=== PATIENT | male | born 1960 | race Caucasian/White ===

== ENCOUNTER 2023-06-04 09:41 | Inpatient (IN) ==
[2023-06-04] MEDS ORDERED: Etomidate 40 mg/20 ml (2 MG/ML) 20 ml VIAL (40 mg) ONE ×2 (09:56)
[2023-06-04] MEDS ORDERED: Rocuronium 50 mg VIAL 10 mg/ml 5 ml VIAL (50 mg) ONE ×2 (09:56)
[2023-06-04] MEDS ORDERED: NS 0.9% 1000 ml BAG 1,000 ML IV ONE (10:03)
[2023-06-04 10:29] LABS: ABS Lymphocytes 0.9 10^3/uL (1.0-4.8); ABS Monocytes 0.4 10^3/uL (0.0-1.1); ABS Neutrophils 6.9 10^3/uL (1.5-7.6); Hematocrit 35.2 % (38-53); Lymphocyte % 10.9 %; Mean Corpuscular Hemoglobin 34.1 pg (27-33); Mean Corpuscular Volume 100.3 fL (80-97); Mean Platelet Volume 9.4 fL (7.5-11.2); Platelet Count 128 10^3/uL (150-450); Red Blood Count 3.51 10^6/uL (4.06-5.63); Red Cell Distribution Width 12.9 % (12-17); White Blood Count 8.2 10^3/uL (3.6-10.2)
[2023-06-04 10:30] LABS: Eosinophil % 0.2 %
[2023-06-04] MEDS ORDERED: levETIRAcetam 1000MG IVPREMIX 1,000 MG/100 ML BAG IVPB ONE (10:31)
[2023-06-04] MEDS: Propofol 10 mg/ml 100 ML BTL 1,000 MG/100 ML BTL IV SCH ×2 (10:55→17:27)
[2023-06-04 11:15] LABS: Albumin 4.1 g/dL (3.2-5.2); Albumin/Globulin Ratio 1.8 (1-3); C Reactive Protein 7.83 mg/L (<8.01); Creatinine, Serum 1.26 mg/dL (0.67-1.17); Globulin 2.3 g/dL (2-4); Potassium 3.9 mmol/L (3.5-5.0); Total Bilirubin 0.6 mg/dL (0.2-1.0); Total Protein 6.4 g/dL (6.4-8.9); eGFR CKD-EPI 64.5 (>60)
[2023-06-04 12:04] LABS: Calcium 8.8 mg/dL (8.6-10.3)
[2023-06-04 12:14] LABS: Resp Rate 16
[2023-06-04 12:17] LABS: PCO2 Arterial 41 mmHg (35-45); PO2 Arterial 64 mmHg (80-100)
[2023-06-04 12:27] LABS: Urine Appearance Clear; Urine Bilirubin Negative (Negative); Urine Blood 1+ (Negative); Urine Color Colorless; Urine Glucose Negative (Negative); Urine Ketones Negative (Negative); Urine Nitrite Negative (Negative); Urine Protein Negative (Negative); Urine Specific Gravity 1.005 (1.002-1.030); Urine Urobilinogen Negative (Negative)
[2023-06-04 13:12] LABS: Urine Bacteria 1+ (Absent); Urine Red Blood Cell Trace(0-2/hpf) (Absent); Urine White Blood Cell Absent (Absent)
[2023-06-04 13:25] LABS: TSH Ultra Thyroid Stim Horm 4.06 mcIU/mL (0.34-5.60)
[2023-06-04 13:29] LABS: Acetaminophen < 15 mcg/mL; Alcohol, S < 13 mg/dL (<13); Salicylate < 2.50 mg/dL (<30)
[2023-06-04 13:57] LABS: INR 1.05 (0.83-1.13)
[2023-06-04 14:26] LABS: Urine Benzodiazepine Screen Presumptive Positive (None Detect); Urine Cannabinoids Screen None Detected (None Detect); Urine Opiates Screen None Detected (None Detect)
[2023-06-04 14:49] LABS: Anion Gap 11 mmol/L (2-16); Blood Urea Nitrogen 12 mg/dL (6-24); CO2 Carbon Dioxide 17 mmol/L (22-32); Calcium 7.1 mg/dL (8.6-10.3); Chloride 111 mmol/L (101-111); Glucose 86 mg/dL (70-100); High Sens Troponin Baseline 9 pg/mL (<20); Sodium 139 mmol/L (135-145); eGFR CKD-EPI 96.6 (>60)
[2023-06-04] MEDS: Enoxaparin 40 MG/0.4 ML SYR SUBCUT SCH (14:52)
[2023-06-04] MEDS: Chlorhexidine MOUTHWASH 0.12% 15 ML UDC SWISH SPIT SCH ×3 (14:52→21:30)
[2023-06-04] MEDS: Pantoprazole VIAL 40 MG VIAL IV SCH (14:52)
[2023-06-04] MEDS ORDERED: levETIRAcetam 500 MG IVPREMIX 500 MG/100 ML BAG IV SCH (16:00)
[2023-06-04] MEDS: levETIRAcetam 500 MG IVPREMIX 500 MG/100 ML BAG IV SCH (16:20)
[2023-06-04 16:41] LABS: Calcium 8.8 mg/dL (8.6-10.3); Magnesium 2.2 mg/dL (1.9-2.7); Potassium 3.6 mmol/L (3.5-5.0)
[2023-06-04 16:47] LABS: Creatinine, Serum 1.05 mg/dL (0.67-1.17); eGFR CKD-EPI 80.3 (>60)
[2023-06-04] MEDS ORDERED: Acetaminophen IV 1 GM/100ML 1,000 MG/100 ML BAG IV PRN ×2 (18:00→19:36)
[2023-06-04 18:06] LABS: Magnesium 2.2 mg/dL (1.9-2.7); Potassium Redraw 3.7 mmol/L (3.5-5.0)
[2023-06-04] MEDS ORDERED: NORMOSOL R PH IV ONE (19:39)
[2023-06-04] MEDS ORDERED: Vancomycin 1,000 MG in NS 0.9% 250 ml 250 ML IVPB ONE (19:41)
[2023-06-04] MEDS ORDERED: Lactated Ringers 1000 ml BAG 1,000 ML IV SCH (20:00)
[2023-06-04] MEDS ORDERED: Vancomycin per Pharmacy 1 EA NOTE FOLLOW UP SCH (20:00)
[2023-06-04] MEDS ORDERED: LORazepam 2 mg VIAL 1 ml IV PUSH ONE (20:47)
[2023-06-04] MEDS ORDERED: Lorazepam PYXIS KEY PRN (20:47)
[2023-06-04 20:52] LABS: ABS Lymphocytes 0.7 10^3/uL (1.0-4.8); ABS Monocytes 0.9 10^3/uL (0.0-1.1); ABS Neutrophils 5.1 10^3/uL (1.5-7.6); Hemoglobin 12.1 g/dL (13.2-16.3); Lymphocyte % 9.7 %; Mean Corpuscular Hemoglobin 34.5 pg (27-33); Mean Corpuscular Hgb Conc 35.4 g/dL (31-36); Mean Corpuscular Volume 97.3 fL (80-97); Mean Platelet Volume 10.1 fL (7.5-11.2); Platelet Count 136 10^3/uL (150-450); Red Cell Distribution Width 13.6 % (12-17); White Blood Count 6.7 10^3/uL (3.6-10.2)
[2023-06-04] MEDS: Dexamethasone IV 4 MG/ML VIAL 1 ml VIAL IV SLOW PU SCH (21:31)
[2023-06-04] MEDS: Ampicillin ADVAN 2 GM in NS 0.9% 100 ml BAG 100 ML IVPB SCH (21:31)
[2023-06-04] MEDS: cefTRIAXone 2 gm/50 mL D5W 2 GM/50 ML BAG IV SCH (21:31)
[2023-06-04] MEDS: Norepinephrine 16MCG/ML BAGD5W 4,000 MCG/250 ML BAG IV SCH ×2 (21:32→21:57)
[2023-06-04] MEDS ORDERED: Midazolam 5 mg/5 ml VIAL 1 mg/ml 5 ml VIAL (5 mg) IV SLOW PU ONE (21:52)
[2023-06-04] MEDS ORDERED: Midazolam 5 mg/5 ml VIAL 1 mg/ml 5 ml VIAL (5 mg) ONE (21:54)
[2023-06-04] MEDS ORDERED: Atropine 0.1 MG/ML 10 ml SYR (1 mg) ONE (22:26)
[2023-06-04] MEDS ORDERED: fentaNYL 100 mcg/2 ml 50 MCG/ML VIAL ONE (22:41)
[2023-06-04 22:47] LABS: Prolactin 44.5 ng/mL (1.0-20.0)
[2023-06-05] MEDS: Chlorhexidine MOUTHWASH 0.12% 15 ML UDC SWISH SPIT SCH ×6 (00:25→20:32)
[2023-06-05 00:50] LABS: PCO2 Arterial 39 mmHg (35-45); PO2 Arterial 157 mmHg (80-100)
[2023-06-05 00:53] LABS: Body Fluid Source Cerebral Spinal
[2023-06-05 00:55] LABS: Osmolality Serum 287 mOsm/kg (275-295)
[2023-06-05 00:57] LABS: Calcium 8.3 mg/dL (8.6-10.3); Magnesium 2.3 mg/dL (1.9-2.7); Potassium 3.8 mmol/L (3.5-5.0)
[2023-06-05 00:59] LABS: Urine Osmo 308 mOsm/kg (150-1150)
[2023-06-05 01:02] LABS: Creatinine, Serum 0.85 mg/dL (0.67-1.17); eGFR CKD-EPI 98.2 (>60)
[2023-06-05 01:08] LABS: CSF Glucose 67 mg/dL (40-70)
[2023-06-05] MEDS: Propofol 10 mg/ml 100 ML BTL 1,000 MG/100 ML BTL IV SCH ×3 (01:35→18:30)
[2023-06-05] MEDS ORDERED: Atropine 0.1 MG/ML 10 ml SYR (1 mg) IV PUSH ONE (02:30)
[2023-06-05] MEDS ORDERED: fentaNYL 100 mcg/2 ml 50 MCG/ML VIAL IV SLOW PU ONE (02:30)
[2023-06-05] MEDS: Dexamethasone IV 4 MG/ML VIAL 1 ml VIAL IV SLOW PU SCH ×2 (02:51→08:54)
[2023-06-05] MEDS: Ampicillin ADVAN 2 GM in NS 0.9% 100 ml BAG 100 ML IVPB SCH ×6 (02:52→21:38)
[2023-06-05 02:53] LABS: Body Fluid Appearance Clear; Body Fluid Color Colorless; CSF Tube # 4
[2023-06-05] MEDS ORDERED: Norepinephrine 16MCG/ML BAGD5W 4,000 MCG/250 ML BAG IV SCH (02:54)
[2023-06-05] MEDS ORDERED: Atropine 0.1 MG/ML 10 ml SYR (1 mg) IV PUSH PRN (02:55)
[2023-06-05 03:03] LABS: Body Fluid WBC 0 /mcL
[2023-06-05] MEDS: levETIRAcetam 500 MG IVPREMIX 500 MG/100 ML BAG IV SCH ×2 (04:19→17:28)
[2023-06-05 04:26] LABS: Body Fluid Total Cells Counted 0
[2023-06-05 05:18] LABS: ABS Lymphocytes 0.3 10^3/uL (1.0-4.8); ABS Monocytes 0.1 10^3/uL (0.0-1.1); ABS Neutrophils 6.4 10^3/uL (1.5-7.6); Hematocrit 33.4 % (38-53); Hemoglobin 11.9 g/dL (13.2-16.3); Lymphocyte % 4.8 %; Mean Corpuscular Hemoglobin 34.5 pg (27-33); Mean Corpuscular Hgb Conc 35.6 g/dL (31-36); Mean Corpuscular Volume 96.9 fL (80-97); Mean Platelet Volume 9.2 fL (7.5-11.2); Platelet Count 115 10^3/uL (150-450); Red Blood Count 3.45 10^6/uL (4.06-5.63); Red Cell Distribution Width 13.4 % (12-17); White Blood Count 6.8 10^3/uL (3.6-10.2)
[2023-06-05 05:38] LABS: Calcium 8.5 mg/dL (8.6-10.3); Creatinine, Serum 0.83 mg/dL (0.67-1.17); Magnesium 2.2 mg/dL (1.9-2.7)
[2023-06-05] MEDS: cefTRIAXone 2 gm/50 mL D5W 2 GM/50 ML BAG IV SCH ×2 (09:46→20:32)
[2023-06-05] MEDS: Vancomycin 750 MG in NS 0.9% 250 ML IVPB SCH ×2 (11:30→22:38)
[2023-06-05] MEDS: Enoxaparin 40 MG/0.4 ML SYR SUBCUT SCH (11:36)
[2023-06-05] MEDS: Pantoprazole VIAL 40 MG VIAL IV SCH (11:37)
[2023-06-05] MEDS ORDERED: Rocuronium 50 mg VIAL 10 mg/ml 5 ml VIAL (50 mg) IV ONE (11:56)
[2023-06-05] MEDS ORDERED: Rocuronium 50 mg VIAL 10 mg/ml 5 ml VIAL (50 mg) ONE (11:57)
[2023-06-05] MEDS ORDERED: Midazolam 2 mg/2 ml VIAL 1 mg/ml 2 ml VIAL (2 mg) IV SLOW PU PRN (12:03)
[2023-06-05] MEDS: Midazolam 10 mg/10 ml VIAL 1 mg/ml 10 ml VIAL (10 mg) ONE ×2 (13:25→15:24)
[2023-06-05] MEDS ORDERED: Midazolam 10 mg/10 ml VIAL 1 mg/ml 10 ml VIAL (10 mg) IV SLOW PU PRN (15:01)
[2023-06-05 17:20] LABS: Calcium 8.9 mg/dL (8.6-10.3); Creatinine, Serum 0.91 mg/dL (0.67-1.17); Magnesium 2.1 mg/dL (1.9-2.7); Phosphorus 4.4 mg/dL (2.5-5.0); Potassium 4.2 mmol/L (3.5-5.0); eGFR CKD-EPI 95.3 (>60)
[2023-06-05 18:06] LABS: Folate > 20.00 ng/mL (5.90-24.80)
[2023-06-05 18:07] LABS: Vitamin B12 291 pg/mL (180-914)
[2023-06-06] MEDS: Chlorhexidine MOUTHWASH 0.12% 15 ML UDC SWISH SPIT SCH ×5 (00:11→18:12)
[2023-06-06] MEDS: Ampicillin ADVAN 2 GM in NS 0.9% 100 ml BAG 100 ML IVPB SCH ×3 (01:11→16:02)
[2023-06-06] MEDS: levETIRAcetam 500 MG IVPREMIX 500 MG/100 ML BAG IV SCH ×2 (03:42→17:23)
[2023-06-06] MEDS: Propofol 10 mg/ml 100 ML BTL 1,000 MG/100 ML BTL IV SCH (03:42)
[2023-06-06 04:07] LABS: ABS Lymphocytes 0.4 10^3/uL (1.0-4.8); ABS Monocytes 0.8 10^3/uL (0.0-1.1); ABS Neutrophils 7.9 10^3/uL (1.5-7.6); ABS Nucleated RBC 0.01 10^3/ul; Hematocrit 27.8 % (38-53); Lymphocyte % 4.9 %; Mean Corpuscular Volume 97.2 fL (80-97); Mean Platelet Volume 9.8 fL (7.5-11.2); Nucleated Red Blood Cells % 0.1 /100 WBC (0.0-0.4); Platelet Count 93 10^3/uL (150-450); Red Blood Count 2.86 10^6/uL (4.06-5.63); Red Cell Distribution Width 13.5 % (12-17); White Blood Count 9.2 10^3/uL (3.6-10.2)
[2023-06-06 04:23] LABS: Albumin 3.3 g/dL (3.2-5.2); Albumin/Globulin Ratio 1.7 (1-3); Calcium 8.2 mg/dL (8.6-10.3); Creatinine, Serum 0.9 mg/dL (0.67-1.17); Magnesium 1.9 mg/dL (1.9-2.7); Phosphorus 3.7 mg/dL (2.5-5.0); Potassium 3.9 mmol/L (3.5-5.0); Total Bilirubin 0.3 mg/dL (0.2-1.0); Total Protein 5.3 g/dL (6.4-8.9); eGFR CKD-EPI 96.6 (>60)
[2023-06-06] MEDS ORDERED: KCL 10 MEQ/50 ML IVPREMIX 10 MEQ/50 ML BAG IV ONE (07:12)
[2023-06-06] MEDS ORDERED: Magnesium Sulfate IV 1GM/100ML 1 GM/100 ML BAG IV ONE (07:12)
[2023-06-06] MEDS ORDERED: Cyanocobalamin INJ 1,000 MCG/ML VIAL 1 ML VIAL IM ONE (07:12)
[2023-06-06] MEDS: cefTRIAXone 2 gm/50 mL D5W 2 GM/50 ML BAG IV SCH (09:07)
[2023-06-06] MEDS ORDERED: Vancomycin Trough Check NOTE FOLLOW UP ONE (10:30)
[2023-06-06] MEDS: Enoxaparin 40 MG/0.4 ML SYR SUBCUT SCH (15:41)
[2023-06-06] MEDS: Pantoprazole VIAL 40 MG VIAL IV SCH (15:41)
[2023-06-06] MEDS ORDERED: Lorazepam PYXIS KEY PRN (20:19)
[2023-06-06] MEDS ORDERED: LORazepam 2 mg VIAL 1 ml IV PUSH PRN (20:19)
[2023-06-06] MEDS ORDERED: LORazepam 2 mg VIAL 1 ml ONE (20:26)
[2023-06-06] MEDS ORDERED: Haloperidol 5 mg/ml SDV IV/IM 5 MG/ML AMP IV SLOW PU PRN (21:40)
[2023-06-07] MEDS: levETIRAcetam 500 MG IVPREMIX 500 MG/100 ML BAG IV SCH (03:34)
[2023-06-07 04:35] LABS: ABS Lymphocytes 0.9 10^3/uL (1.0-4.8); ABS Monocytes 0.6 10^3/uL (0.0-1.1); ABS Neutrophils 4.1 10^3/uL (1.5-7.6); ABS Nucleated RBC 0.01 10^3/ul; Eosinophil % 0.1 %; Hematocrit 30.2 % (38-53); Hemoglobin 10.8 g/dL (13.2-16.3); Lymphocyte % 16.4 %; Mean Corpuscular Hemoglobin 34.8 pg (27-33); Mean Corpuscular Hgb Conc 35.7 g/dL (31-36); Mean Corpuscular Volume 97.3 fL (80-97); Mean Platelet Volume 9.6 fL (7.5-11.2); Nucleated Red Blood Cells % 0.2 %/100WBC (0.0-0.8); Platelet Count 98 10^3/uL (150-450); Red Cell Distribution Width 13.3 % (12-17); White Blood Count 5.6 10^3/uL (3.6-10.2)
[2023-06-07 04:56] LABS: Albumin 3.6 g/dL (3.2-5.2); Albumin/Globulin Ratio 1.6 (1-3); Calcium 8.6 mg/dL (8.6-10.3); Creatinine, Serum 0.83 mg/dL (0.67-1.17); Globulin 2.2 g/dL (2-4); Magnesium 1.9 mg/dL (1.9-2.7); Potassium 3.4 mmol/L (3.5-5.0); Total Bilirubin 0.5 mg/dL (0.2-1.0); Total Protein 5.8 g/dL (6.4-8.9)
[2023-06-07] MEDS ORDERED: Potassium Chloride LIQUID 20 MEQ/15 ML LIQUID PO ONE (08:30)
[2023-06-07] MEDS: Enoxaparin 40 MG/0.4 ML SYR SUBCUT SCH ×2 (13:02→14:18)
[2023-06-08 06:11] LABS: ABS Lymphocytes 0.7 10^3/uL (1.0-4.8); ABS Monocytes 0.7 10^3/uL (0.0-1.1); ABS Neutrophils 3.2 10^3/uL (1.5-7.6); ABS Nucleated RBC 0.01 10^3/ul; Eosinophil % 0.2 %; Hemoglobin 11.6 g/dL (13.2-16.3); Lymphocyte % 15.8 %; Mean Corpuscular Hemoglobin 34.1 pg (27-33); Mean Corpuscular Hgb Conc 35.2 g/dL (31-36); Mean Corpuscular Volume 97.1 fL (80-97); Mean Platelet Volume 9.2 fL (7.5-11.2); Nucleated Red Blood Cells % 0.2 %/100WBC (0.0-0.8); Platelet Count 108 10^3/uL (150-450); Red Cell Distribution Width 13.2 % (12-17); White Blood Count 4.7 10^3/uL (3.6-10.2)
[2023-06-08 06:43] LABS: Albumin 3.8 g/dL (3.2-5.2); Albumin/Globulin Ratio 1.7 (1-3); Creatinine, Serum 0.78 mg/dL (0.67-1.17); Globulin 2.2 g/dL (2-4); Magnesium 1.7 mg/dL (1.9-2.7); Phosphorus 3.6 mg/dL (2.5-5.0); Potassium 3.7 mmol/L (3.5-5.0); Total Bilirubin 0.7 mg/dL (0.2-1.0); eGFR CKD-EPI 100.8 (>60)
[2023-06-08] MEDS ORDERED: Magnesium Sulfate 2 gm BAG 2 GM/50 ML BAG IVPB ONE (07:53)
[2023-06-08] MEDS: Enoxaparin 40 MG/0.4 ML SYR SUBCUT SCH (13:07)
[2023-06-09 10:44] VITALS: BP 155/87
== END 2023-06-09 11:25 | disposition home or self-care (01) | DRG 101 ==
LOC: ED 09:41 → EDHOLD 11:39 → SUATTDRO 11:39 → ICU 13:50 → MED 06-07 22:52
PROVIDERS: ADMIT Student in an Organized Health Care Education/Training Program; ATTEND Hospitalist